=== PATIENT | male | born 1995 | race Caucasian/White ===

== ENCOUNTER 2017-08-16 13:08 | Emergency (ER) | payer BC, OTHER ==
[2017-08-16] MEDS: TETRACAINE 0.5% 4 ML OPH LEFT EYE (14:31)
[2017-08-16] MEDS: FLUORESCEIN STRIP LEFT EYE (14:31)
[2017-08-16] MEDS: ERYTHROMYCIN 1 GM OPH OINT RIGHT EYE (15:38)
[2017-08-16] MEDS: IBUPROFEN 200 MG TAB PO (16:27)
== END 2017-08-16 17:20 | disposition home or self-care (01) ==
LOC: FTE 13:08
DX: T15.91XA Foreign body on external eye, part unspecified, right eye, initial encounter (principal); X58.XXXA Exposure to other specified factors, initial encounter; Y92.9 Unspecified place or not applicable
CPT/HCPCS: 76536; 99284-25

== ENCOUNTER 2018-07-14 20:21 | Emergency (ER) | payer BC ==
[2018-07-14] MEDS: SOD CHLORIDE 0.9% 1,000 ML IV (21:12)
[2018-07-14] MEDS: DEXAMETHASONE 10 MG/ML 1 ML INJ IV (21:12)
[2018-07-14] MEDS: KETOROLAC 30 MG INJ IV (21:12)
[2018-07-14] MEDS: ACETAMINOPHEN 500 MG TAB PO (21:12)
[2018-07-14] MEDS: AMPICILLIN/SULB 3 GM/NS (PMX) 100 ML IVPB (21:25)
== END 2018-07-14 23:07 | disposition home or self-care (01) ==
LOC: E/R 20:21
DX: J03.90 Acute tonsillitis, unspecified (principal)
CPT/HCPCS: 96365; 96375; 99284-25